=== PATIENT | male | born 2000 | race Caucasian/White ===

== ENCOUNTER 2023-04-28 19:18 | Emergency (ER) | payer OTHER, SELFPAY ==
[2023-04-28 19:23] VITALS: BP 121/76; PULSE 91; RESP 16; TEMP 36.4; O2SAT 100; BMI 28.2
--- NOTE | 2023-04-28 19:43 | ED.GENADULT ---
HPI - General Adult General Date Seen: 04/28/23 Chief complaint: Laceration/Wound Stated complaint: L pointer finger laceration Time Seen by Provider: 04/28/23 19:24 Source: patient Mode of arrival: ambulatory Limitations: no limitations History of Present Illness HPI narrative: Patient is a 23-year-old young man who presents to the ER for evaluation of a laceration on his left finger. 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 He says he wrapped it up right away, really did not look at it. Bleeding is controlled. No numbness or loss of function. Last tetanus 2020. No other complaints. Related Data Home Medications Medication Instructions Recorded Confirmed venlafaxine 150 mg 150 mg PO DAILY 04/28/23 04/28/23 capsule,extended release 24 hr Allergies Allergy/AdvReac Type Severity Reaction Status Date / Time No Known Drug Allergies Allergy Verified 04/28/23 19:25 PFSH PFS Social History How often do you have a drink containing alcohol: monthly or less AUDIT-C Alcohol total score: 1 Non-prescribed substance use: denies use Exam Narrative: Exam Narrative: Vital signs reviewed In general, alert, well-appearing young man. Extremities: Examination of the left hand shows a 2 cm laceration on the dorsum of the index finger at the level of the D IP joint. He has full flexion extension, distal CMS is normal. Skin: Warm dry well perfused. Otherwise intact. Const: Vital Signs, click to edit/add: Vital Signs - 24 hr 04/28/23 19:23 Temperature 97.6 F Pulse Rate [Right Pulse Oximeter] 91 Respiratory Rate 16 Blood Pressure [Ri ght Upper Arm] 121/76 Pulse Oximetry 100 Oxygen Delivery Me thod Room Air Documenting provider has reviewed patient's vital signs: yes Course Course Hospital Course: Procedure note: The wound was anesthetized using lidocaine with epinephrine explored without evidence of foreign body or damage to deeper structures such as tendons. Wound was closed using 5 0 nylon, a total of 4 simple interrupted superficial sutures were placed. He tolerated this well without immediate complication. A dressing is applied. Routine wound care, return for signs of infection. Suture removal in 7-10 days. Vital Signs Vital signs: Initial Vital Signs Temperature 97.6 F 04/28/23 19:23 Temperature Source Temporal Artery Scan 04/28/23 19:23 Pulse Rate 91 04/28/23 19:23 Respiratory Rate 16 04/28/23 19:23 Blood Pressure 121/76 04/28/23 19:23 Blood Pressure Mean 91 04/28/23 19:23 Blood Pressure Position Sitting 04/28/23 19:23 Pulse Oximetry 100 04/28/23 19:23 Oxygen Delivery Method Room Air 04/28/23 19:23 Vital Signs Temperature 97.6 F 04/28/23 19:23 Pulse Rate 91 04/28/23 19:23 Respiratory Rate 16 04/28/23 19:23 Blood Pressure 121/76 04/28/23 19:23 Pulse Oximetry 100 04/28/23 19:23 Oxygen Delivery Method Room Air 04/28/23 19:23 Temperature 97.6 F 04/28/23 19:23 Pulse Rate 91 04/28/23 19:23 Respiratory Rate 16 04/28/23 19:23 Blood Pressure 121/76 04/28/23 19:23 Pulse Oximetry 100 04/28/23 19:23 Oxygen Delivery Method Room Air 04/28/23 19:23 Discharge Plan Discharge Clinical Impression: Finger laceration Patient Disposition: Home, Self-Care Condition: Improved Instructions: Finger Laceration (ED) Additional Instructions: routine wound care, keep wound clean and dry. Suture removal in 7-10 days, this can be done at clinic if desired. Return for signs of infection. Prescriptions: No Action venlafaxine 150 mg capsule,extended release 24hr 150 mg PO DAILY Follow Up/Referrals: Dillon Valenzuela MD [Primary Care Provider] - Stand Alone Forms: My[facility] Info Instructions
--- NOTE | 2023-04-28 19:59 | ED.NURSE ---
telfa and tube gauze applied, education given. pt dc.
== END 2023-04-28 20:02 | disposition home or self-care (01) ==
PROVIDERS: Emergency Provider Emergency Medicine; PCP Surgery
DX: S61.211A Laceration without foreign body of left index finger without damage to nail, initial encounter (principal); W26.0XXA Contact with knife, initial encounter; Y99.0 Civilian activity done for income or pay
CPT/HCPCS: 12001; 99283

== ENCOUNTER 2024-07-06 19:16 | Emergency (ER) | payer OTHER, SELFPAY ==
[2024-07-06 19:21] VITALS: BP 132/74; PULSE 84; RESP 18; TEMP 36.8; O2SAT 99; BMI 24.4
--- NOTE | 2024-07-06 20:10 | ED_ITS ---
HPI - Wound/Laceration General Chief Complaint: Laceration/Wound Stated Complaint: L middle finger lac Time Seen by Provider: 07/06/24 19:23 History of Present Illness HPI narrative: This 24-year-old male comes in with laceration to the tip of his left middle finger. He was at work using a knife and has an avulsion of the tip of the finger on the side of the index finger near by. He has persistent bleeding from this area. His tetanus status is up-to-date. Related Data Home Medications ?Medication ?Instructions ?Recorded ?Confirmed escitalopram oxalate 5 mg tablet 5 mg PO QAM 07/06/24 07/06/24 Allergies Allergy/AdvReac Type Severity Reaction Status Date / Time No Known Drug Allergies Allergy Verified 07/06/24 19:23 Review of Systems Status of ROS: Reports: 10 or more systems reviewed and unremarkable except as noted in History and below Narrative: Constitutional: No fevers, no weight gain or loss. Eyes: No discharge. No vision changes. HENT: No congestion, no sore throat, no ear pain. Cardiovascular: No chest pain, no palpitations. Respiratory: No shortness of breath, no wheezes, no cough. Gastrointestinal: No abdominal pain, no vomiting, no diarrhea. Genitourinary: No dysuria, no hematuria. Musculoskeletal: Normal range of motion. Skin: No rashes, no pruritis. Neurological: No dizziness, weakness, sensory change, speech change. Endo/Heme/Allergies: No bruising or bleeding. No polydipsia. Pysch: no suicidality, no anxiety, no insomnia. All other systems reviewed and are negative. [facility] Medical History (Updated 07/06/24 @ 20:14 by Corey Luna RN) No significant past medical history Surgical History (Updated 07/06/24 @ 20:14 by Corey Luna RN) History of wisdom tooth extraction ?K08.409 - Partial loss of teeth, unspecified cause, unspecified class (ICD- 10) Social History Smoking Status: Never smoker Do you use any of these nicotine containing products: Vaping Products Second hand tobacco smoke exposure: No How often do you have a drink containing alcohol: monthly or less AUDIT-C Alcohol total score: 1 Non-prescribed substance use: marijuana (any form) Exam Narrative: Exam Narrative: Constitutional: Well-developed, well-nourished, no acute distress. HEENT: Normocephalic, atraumatic. Neck: Normal range of motion. Nontender. Supple. Heart: Regular. No murmurs. Normal rate. Intact distal pulses. Lungs: Clear to auscultation. No chest discomfort. No wheezes, rhonchi, or rales. Abdomen: Normal bowel sounds. Nontender. No rebound tenderness. Genitalia: Deferred. Back: No midline tenderness. Normal range of motion. Extremities: Normal range of motion. Small avulsion of the tip of the left middle finger with some persistent bleeding. Skin: Intact. No rash. Warm. No erythema or pallor. Neurologic: No altered sensation. No weakness. Alert and oriented. Psychiatric: No suicidality. No anxiety or depression. No insomnia. Nursing notes and vitals signs are reviewed. Const: Vital Signs, click to edit/add: Vital Signs - 24 hr 07/06/24 19:21 Temperature 98.2 F Pulse Rate [Right Pulse Oximeter] 84 Respiratory Rate 18 Blood Pressure [Ri ght Upper Arm] 132/74 Pulse Oximetry 99 Oxygen Delivery Me thod Room Air Course Vital Signs Vital signs: Initial Vital Signs Temperature 98.2 F 07/06/24 19:21 Temperature Source Temporal Artery Scan 07/06/24 19:21 Pulse Rate 84 07/06/24 19:21 Respiratory Rate 18 07/06/24 19:21 Blood Pressure 132/74 07/06/24 19:21 Blood Pressure Mean 93 07/06/24 19:21 Blood Pressure Position Sitting 07/06/24 19:21 Pulse Oximetry 99 07/06/24 19:21 Oxygen Delivery Method Room Air 07/06/24 19:21 Vital Signs Temperature 98.2 F 07/06/24 19:21 Pulse Rate 84 07/06/24 19:21 Respiratory Rate 18 07/06/24 19:21 Blood Pressure 132/74 07/06/24 19:21 Pulse Oximetry 99 07/06/24 19:21 Oxygen Delivery Method Room Air 07/06/24 19:21 Temperature 98.2 F 07/06/24 20:25 Pulse Rate 81 07/06/24 20:25 Respiratory Rate 18 07/06/24 20:25 Blood Pressure 124/74 07/06/24 20:25 Pulse Oximetry 99 07/06/24 20:24 Oxygen Delivery Method Room Air 07/06/24 20:24 Medications Administered Medications: Discontinued Medications Generic Name Dose Route Start Last Admin Trade Name Radha PRN Reason Stop Dose Admin Diphtheria/Tetanus/Acell Pertussis 0.5 ml 07/06/24 19:57 07/06/24 20:26 Tetanus/Diphth/Pertussis 0.5 Ml Syringe IM 07/06/24 19:58 Not Given .ONCE ONE Lidocaine/Epinephrine 20 ml 07/06/24 19:47 07/06/24 20:00 Lidocaine 1%-Epi 1:100,000 10 Ml INFILTRATI 07/06/24 19:48 20 ml ONCE ONE Administration MDM - Wound/Laceration MDM Narrative Medical decision making narrative: This patient has a avulsion of the tip of his left middle finger that has persistent bleeding. I used a Turn-a-qot ring exsanguinated to make a bloodless field. The wound was cleansed and then he received of injection of lidocaine with epinephrine followed by silver nitrate and then Dermabond to seal the wound. A Band-Aid was placed and the ring exsanguinated her was removed. There is no further bleeding identified. Instructions regarding wound care were given. Discharge Plan Discharge Clinical Impression: Avulsion of skin Patient Disposition: Home, Self-Care Condition: Improved Additional Instructions: Keep wound clean and dry. Activity as tolerated. Follow up with MD return if worsening. Prescriptions: No Action escitalopram oxalate 5 mg tablet 5 mg PO QAM Follow Up/Referrals: Dillon Valenzuela MD [Primary Care Provider] - Stand Alone [facility] Instructions
--- OUTSIDE RECORDS SUMMARY | 2024-07-06 20:10 | XMS_ITS | Clinical Summary ---
Author Organization [facility] Address [place], [place] [address] Care Team Providers Care Scale Expert Name Role Phone Dillon Valenzuela MD Primary Care Provider [phone] Allergies Active Allergy Reactions Criticality Noted Date Comments Pollen Extracts Runny Nose 01/20/2018 Medications Medication Sig Dispensed Refills Start Date End Date Status CPAPIndications:GERMAINE (obstructive sleep apnea) CPAP machine for home use at pressure: 8cm/H2O , Heated humidifier x 1, Humidifier chamber x 1, 1 Each 11 08/08/2021 Active loratadine (CLARITIN) 10 mg tablet Take 1 Tablet (10 mg) by mouth once daily. 04/18/2024 Active escitalopram oxalate (LEXAPRO) 5 mg tabletIndications:A nxiety,Moderate episode of recurrent major depressive disorder (HC) Take 1 Tablet (5 mg) by mouth once daily in the morning. 90 Tablet 3 04/18/2024 Active ketoconazole 2% shampoo (NIZORAL) 2 % shampooIndications: Seborrheic dermatitis Apply 5 to 10 mL to wet scalp, lather, leave on 3 to 5 minutes, and rinse; apply twice weekly for 2 to 4 weeks. 120 mL 1 04/18/2024 Active fluticasone (50 mcg per actuation) nasal solution (FLONASE)Indication s:Dysfunction of both eustachian tubes Inhale 1 [place] to both nostrils once daily. 16 g 3 04/18/2024 Active Active Problems Problem Noted Date Diagnosed Date GERMAINE 04/25/2019 AHI- 80 05/26/2019 Moderate episode of recurrent major depressive d isorder 04/27/2019 Generalized anxiety disorder 04/03/2019 Spermatocele of epididymis, single 04/12/2018 Overview: Right Varicocele 04/12/2018 Overview: left Acne 03/11/2013 Allergic rhinitis 03/15/2009 Encounters Date Type Department Care Team Description 04/18/2024 1:25 PM CDT Office Visit [facility] [address] [place] [address] Dillon Valenzuela MD Medication Management; Sinus Problem (Started a few days ago); Cough (Started a few days ago/) 04/18/2024 Travel from Last 3 Months Immunizations Name Administration Dates Next Due DTaP 03/18/2004, 0,1999,07/15,1999 HIB-HepB (Comvax) 03/19/2000,1999,05/08/19 99 Hepatitis A (Peds) 03/15/2008,03/17/2007 Inactivated Polio Vaccine 03/18/2004,,1999,05/08 Influenza, IIV4 08/01/2022 MENINGOCOCCAL VACCINE 2 VIAL 2MO-55YO (MENVEO) 03/16/2015 MMR 03/18/2004,03/19/2000 Polio Virus, Unspecified 1999,1999,0 1999 Td (Age >=7 Years) 07/30/2021 Tdap 2010 Varicella Vaccine 03/17/2007,03/19/2000 Family History Medical History Relation Name Comments Thyroid Disease Father hypothyroidi sm Other Maternal Grandfather catarac t Diabetes Maternal Grandmother Other Maternal Grandmother catarac t Other Mother celiac disease Stroke Paternal Grandfather strokes , Other Paternal Grandmother cordelle ma, Good Health Sister 1 Good Health Sister 2 Relation Name Status Comments Brother 1 Alive Brother 2 Alive Father Alive Maternal Grandfather Alive Maternal Grandmother Alive Mother Alive Paternal Grandfather Paternal Grandmother Sister 1 Sister 2 Social History Tobacco Use Types Packs/Day Years Used Date Smoking Tobacco: Some Days Cigars Started: 2017 Smokeless Tobacco: Never Tobacco Cessation:Ready to Q uit: Not Asked; Counseling Given: Not Answered Comments:a cigar every 2-3 months Alcohol Use Standard Drinks/Week Comments Yes 0 (1 standard drink = 0.6 oz pur e alcohol) 1-2 drinks per week PHQ-2 Answer Date Recorded PHQ-2 TOTAL SCORE 2 04/18/2024 Social Connections Answer Date Recorded Frequency of Communication with Friends and Fami ly 0 04/18/2024 Financial Resource Strain Answer Date R ecorded Difficulty of Paying Living Expenses 3 04/18/2024 Difficulty of Paying Living Expenses Not on file 04/18/2024 Food Insecurity Answer Date Recorded Worried About Running Out of Food in the Last Ye ar 1 04/18/2024 Transportation Needs Answer Date Record ed Lack of Transportation (Medical) 1 04/18/2024 Housing Stability Answer Date Recorded Unable to Pay for Housing in the Last Year 1 04/18/2024 Sex and Gender Information Value Date Recorded Sex Assigned at Not on file Gender Identity Not on file Sexual Orientation Not on file Obstetrics History Last Filed Vital Signs Vital Sign Reading Time Taken Comments Blood Pressure 122/66 04/18/2024 1:25 PM CDT Pulse 82 04/18/2024 1:25 PM CDT Temperature 36.7 ??C (98 ??F) 04/18/2024 1:25 PM CDT Respiratory Rate 12 04/18/2024 1:25 PM CDT Oxygen Saturation 95% 04/18/2024 1:25 PM CDT Inhaled Oxygen Concentration - - Weight 90.3 kg (199 lb 1.6 oz) 04/18/2024 1:25 P M CDT Height 188 cm (6' 2) 01/09/2023 3:48 PM [employer] Body Mass Index 25.56 01/09/2023 3:48 PM [employer] Plan of Treatment Health Maintenance Due Date Last Done Comments Pneumococcal series for age 6-64 (1 of 2 - PCV) 2005 HPV series for age 9-26 (1 - Male 3-dose series) 2014 BMI (ht and wt on same day) for age 18+ 01/10/2024 01/09/2023, 08/08/2021, 10/04/2019, Additional history exists COVID-19 vaccine series (2022- season) 2024 12/19/2021, 03/05/2021 Influenza for age 9-49 07/03/2024 08/01/2022 Depression screening for age 12+ 04/18/2025 04/18/2024, 04/01/2024, 12/08/2022, Additional history exists Tetanus booster 07/30/2031 07/30/2021, 2010 Tdap Completed 2010 HIV for age 15-65 Completed 07/30/2021 Hepatitis C screening for ag e 18-79 Completed 07/30/2021 Procedures Procedure Name Priority Date/Time Associated Diagnosis Comments ANTI HIV 1/2 Routine 07/30/2021 5:13 PM CDT Screen for STD (sexually transmitted disease) ANTI HCV Routine 07/30/2021 5:13 PM CDT Screen for STD (sexually transmitted disease) from Last 3 Months or Most Recently Relevant to Health Maintenance Results * ANTI HCV (07/30/2021 5:13 PM CDT) Pathologist [facility] HEPATITIS C ANTIBODY Non-[place]act [place] Non-React [place] 07/31/2021 6:37 PM CDT [facility] Comment:Antibodies to HCV no t detected; does not exclude the possibility of exposure to HCV. Blood BLOOD SPECIMEN / Unknown Venipuncture / Unknown 07/30/2021 5:13 PM CDT 07/30/2021 5:13 PM CDT Dillon Valenzuela MD [facility] [address] [place] [address], * ANTI HIV 1/2 (07/30/2021 5:13 PM CDT) Pathologist [facility] HIV-1/HIV-2 ANTIBODY Non-Reacti ve Non-Reacti ve 07/31/2021 6:27 PM CDT [facility] Comment:HIV-1 p24 and HIV-1/ HIV-2 Ab not detected. Blood BLOOD SPECIMEN / Unknown Venipuncture / Unknown 07/30/2021 5:13 PM CDT 07/30/2021 5:13 PM CDT Dillon Valenzuela MD SEND OUTS [facility] [address] [place] [address], [place] from Last 3 Months or Most Recently Relevant to Health Maintenance Care Teams Scale Expert Relationship Specialty Start Date End Date Dillon Valenzuela MD [address] [place] [address] PCP - General Family Practice 12/22/16
--- OUTSIDE RECORDS SUMMARY | 2024-07-06 20:10 | XMS_ITS | Data Portability ---
Author Organization [place] - [facility], [facility] Address [address] [place] [address] Assessment Encounter Date Assessment Date Assessment LastModified by Organization Details LastModified Time 09/10/2022 09/10/2022 22 Y/O MALE, SEEN FOR TESTICULAR PAIN. [facility] US CONFIRMS LEFT VARICOCELE WHICH DECOMPRESSES NORMALLY. ALSO NOTED IS A RT SPERMATOCELE. REVIEWED FINDINGS AND MANAGEMENT OPTIONS. REVIEWED RECORDS, [facility] U/S PLAN WILL REFER TO DR HENSON FOR VARICOCELE SCLEROTHERAPY. LATER WILL SCHEDULE RT SPERMATOCELECTO MY. ALL QUESTIONS ANSWERED. Not available 09/10/2022 18:13:53 Plan of Treatment Reminders Order Date Submit Date Provider Last Modified By Organization Details Last Modified Time Details Appointments None record ed. Lab None record ed. Referral None record ed. Procedures None record ed. Surgeries None record ed. Imaging None record ed. Medication Orders None record ed. Patient TargetsNo targets recorded. Patient InstructionsNo instructions recorded. Reason for Referral None Reported. Results Created Date Observation Date Name Description Value Unit Range Abnormal Flag Note LastModifiedBy Organization Detail LastModifiedTime 09/05/2008/02/2021 US, duple x, scrot um, compl ete No observ ation record ed. [email or web address] Not Available 2021 16:31:10 09/22/20 22 09/19/2022 US, scrot um No observ ation record ed. [email or web address] Not Available 2021 09:15:28 10/01/20 22 09/29/2022 imagi ng/di agnos tic resul t No observ ation record ed. [email or web address] Not Available 2021 09:45:55 Result Notes None recorded. Procedures Surgical History None recorded. Imaging Results Imaging Date Name Status LastModified by Organiz ation Details LastModified Time 08/02/2021 US, duplex, scrotum, complete completed Information not available 09/05/2022 16:31:10 09/19/2022 US, scrotum completed [email or web address] Information n ot available 09/22/2022 09:15:28 09/29/2022 imaging/diagn ostic result completed Information not available 10/01/2022 09:45:55 Procedure Notes None recorded. Medical Equipment None Reported. Allergies No known drug allergies Medications Name Sig Start Date Stop Date Status Note LastModified by Organization Details LastModified Time venlafaxine ER 37.5 mg capsule,extend ed release 24 hr TAKE 1 CAPSULE BY MOUTH ONCE DAILY WITH A MEAL. active Not Available Not Available No t Available ketoconazole 2 % shampoo APPLY 5-10ML TO WET SCALP, LATHER, LEAVE X3-5MIN. RINSE. TWICE WEEKLY X2-4 WEEKS. active Not Available Not Available No t Available venlafaxine ER 150 mg capsule,extend ed release 24 hr TAKE 1 CAPSULE (150 MG) BY MOUTH ONCE DAILY WITH A MEAL. active Not Available Not Available No t Available mirtazapine 15 mg tablet TAKE 1 TABLET BY MOUTH AT BEDTIME active Not Available Not Available No t Available mirtazapine 7.5 mg tablet TAKE 1 TABLET BY MOUTH AT BEDTIME. active Not Available Not Available No t Available Vitals Date Recorded Body height Body mass index (BMI) Body weight Provider Name and Address Organization Details Last Updated DateTime 09/10/2022 190.5 cm 30 kg/m2 117235.17 g Kyrie Tovar MD [address] [place] [address],[address], [phone] 09/10/2022 15:42:56 Social History Question Answer Notes LastModified by Organizat ion Details LastModified Time Tobacco Smoking Status Current Every Day Smoker Kyrie Tovar MD [address] [place] [address],[address], [address], [facility] 09/10/2022 15:43:38 What Was The Date Of Your Most Recent Tobacco Screening? 09/10/2022 Information not available 09/10/2022 Sex: Unknown Functional Status None recorded. Mental Status None recorded. Family History Relationship Description Onset Age of this Age Resolved Age Notes Father No current problems or disability Mother No current problems or disability Medical History No medical history recorded. Past Encounters Encounter ID Performer Location Encounter Start Date Encounter Closed Date Diagnosis/Indication Diagnosis SNOMED-CT Code Diagnosis ICD10 Code [id number] Kyrie Tovar MD [facility] [address] [place] [address] 09/10/2022 15:39:24 09/15/2022 11:38:16 Varicocele visible through skin 230429954 I86.1 Spermatocele 51789520 N4 3.40 Health Concerns Section Related Observation LastModified by Organization Detai ls LastModified Time None Recorded Concern Status LastModified by Organization Details LastModified Time None Recorded Advance Directives Directive None Recorded Payers Encounter Date Sequence Insurance Name Policy Number Policy Arreola Covered Member ID Arreola Member ID Guarantor Name 09/10/2022 1 [facility] Paramjit Gray [id number] Jorge A Gray Notes Date Note Type Note Provider Name and Address Organization Details Recorded Time 09/10/2022 text/html HPI Notes: 22 Y/ O MALE, SEEN FOR LEFT VARICOCELE. ALSO RT SPERMATOCELE. NO VOIDING SX.S. INTERMITTENT DISCOMFORT OVER SEVERAL YEARS. [facility] U/S REVIEWED. Kyrie Tovar MD [address], [place], [address], [facility] 09/10/2022 18:14:34
[2024-07-06 20:24] VITALS: BP 124/74; PULSE 81; RESP 18; TEMP 36.8; O2SAT 99
[2024-07-06 20:25] VITALS: BP 124/74; PULSE 81; RESP 18; TEMP 36.8
== END 2024-07-06 20:25 | disposition home or self-care (01) ==
PROVIDERS: Emergency Provider Emergency Medicine Emergency Medical Services; PCP Surgery
DX: S61.203A Unspecified open wound of left middle finger without damage to nail, initial encounter (principal); W26.0XXA Contact with knife, initial encounter; Y99.0 Civilian activity done for income or pay
CPT/HCPCS: 90471; 99283; 99284